=== PATIENT | male | born 1975 | race Caucasian/White ===

== ENCOUNTER 2020-02-20 10:54 | Emergency (ER) | payer BC, SELFPAY ==
[2020-02-20 10:56] VITALS: BP 135/89; PULSE 82; RESP 16; TEMP 36.6; O2SAT 99
--- NOTE | 2020-02-20 11:25 | ED.URI ---
HPI - URI/Sore Throat General Chief Complaint: Upper Respiratory Infection Stated Complaint: ear/nose/throat Time Seen by Provider: 02/20/20 11:10 Source: patient and RN notes reviewed Mode of arrival: ambulatory Limitations: no limitations History of Present Illness HPI Narrative: Patient presents today with a 3 to 4-day history of sore throat that increases with swallowing, and tenderness to his anterior neck. Denies fever, cough, congestion, rhinorrhea, ear pain. He currently rates his pain 7/10 and has been taking Tylenol and using Flonase with mild relief. MD elicited complaint: sore throat Related Data Home Medications Medication Instructions Recorded Confirmed fluticasone propionate [Flonase 1 spray INTRANASAL DAILY 02/20/20 02/20/20 Allergy Relief] Allergies Allergy/AdvReac Type Severity Reaction Status Date / Time No Known Allergies Allergy Verified 02/20/20 11:06 Review of Systems Review of Systems: Narrative: CONSTITUTIONAL: Denies body aches, fever, chills, or sweats. EYES: Denies visual changes, redness, or discharge. ENT: Denies rhinorrhea, congestion, or otalgia.+ Throat, neck tenderness CARDIOVASCULAR: Denies chest pain, palpitations, or edema. RESPIRATORY: Denies cough or dyspnea. GASTROINTESTINAL: Denies abdominal pain, nausea, vomiting, or diarrhea. GENITOURINARY: Denies dysuria or hematuria. SKIN: Denies rash, itching, or wounds. MUSCULOSKELETAL: Denies back pain, joint pain, or myalgia. NEUROLOGIC: Denies headache, numbness, tingling, or weakness. PSYCH: Denies depression or anxiety. PMFSH Comments At time of signature, I have reviewed and agree with nursing past medical, surgical, social and family history unless otherwise noted. Please see nursing chart for further information. There is no relevant family history pertinent to the presenting complaint Exam Narrative: Exam Narrative: GENERAL: Well-appearing, well-nourished, and in no acute distress. HEAD: Normocephalic, atraumatic. EYES: EOMI. No redness or drainage. Conjunctivae normal. ENT: Mucous membranes pink and moist. Nares clear. No rhinorrhea. TMs normal bilaterally. Throat mildly erythematous without edema or exudate. Uvula midline. NECK: Normal AROM. Supple. Left anterior cervical chain lymphadenopathy. CHEST: No respiratory distress. Clear to auscultation. HEART: Regular rate and rhythm. No murmur appreciated. Normal peripheral pulses. EXTREMITIES: Normal range of motion. No edema. SKIN: Warm, dry, no rash. Capillary refill normal. Normal skin turgor. NEURO: No focal deficits. Alert and oriented x3. Gait steady. PSYCH: Normal affect. No signs of depression or anxiety. Course Vital Signs Vital signs: Vital Signs Temperature 98 F 02/20/20 10:56 Pulse Rate 82 02/20/20 10:56 Respiratory Rate 16 02/20/20 10:56 Blood Pressure 135/89 02/20/20 10:56 Pulse Oximetry 99 02/20/20 10:56 Temperature 98 F 02/20/20 10:56 Pulse Rate 82 02/20/20 10:56 Respiratory Rate 16 02/20/20 10:56 Blood Pressure 135/89 02/20/20 10:56 Pulse Oximetry 99 02/20/20 10:56 Reviewed. Pt has been instructed to follow up with his PCP regarding his elevated blood pressure today. MDM - URI/Sore Throat Differential Diagnosis Differential diagnosis: Likely upper respiratory infection, viral infection, pharyngitis and other (Strep throat) Lab Data Attestation: I reviewed the patient's lab results. Labs: Strep Screen Presumptive Negative *(Reference Range: Negative)* Critical Care Time Critical Care Time Critical Care Time: No Discharge Plan Discharge Clinical Impression: Pharyngitis Qualifiers: Pharyngitis/tonsillitis etiology: unspecified etiology Qualified Code(s): J02.9 - Acute pharyngitis, unspecified Patient Disposition: Home, Self-Care Condition: Stable Instructions: Pharyngitis (ED) Additional Instructions: Your rapid strep swab was negative today at Ex
== END 2020-02-20 11:31 | disposition home or self-care (01) ==
PROVIDERS: Emergency Provider Nurse Practitioner; PCP Family Medicine
DX: J02.9 Acute pharyngitis, unspecified (principal)
CPT/HCPCS: 87081; 87880; 99213; G0463

== ENCOUNTER 2020-05-12 18:20 | Emergency (ER) | payer BC, SELFPAY ==
[2020-05-12 18:25] VITALS: BP 148/92; PULSE 85; RESP 18; TEMP 36.6; O2SAT 100
--- NOTE | 2020-05-12 19:02 | ED.GENADULT ---
HPI - General Adult General Chief complaint: Wound/Laceration <Von Sultana PA-C - Last Filed: 05/12/20 19:06> Stated complaint: head injury <MASON Hutchinson Last Filed: 05/12/20 19:06> Time Seen by Provider: 05/12/20 18:27 <MASON Hutchinson Last Filed: 05/12/20 19:06> Source: patient <Von Sultana PA-C - Last Filed: 05/12/20 19:06> Mode of arrival: ambulatory <Von Sultana PA-C - Last Filed: 05/12/20 19:06> Limitations: no limitations <Von Sultana PA-C - Last Filed: 05/12/20 19:06> History of Present Illness HPI narrative: Patient is a 44-year-old individual who presents with laceration to the right forehead after accidentally striking his head on his tailgate patient notes contusion with mild aching pain denies LOC syncope loss of consciousness or other complaints. Patient is unsure to his tetanus status but does not wish for tetanus shot at this time <Von Sultana PA-C - Last Filed: 05/12/20 19:06> Related Data Home medications: Home Medications Medication Instructions Recorded Confirmed fluticasone propionate [Flonase 1 spray INTRANASAL DAILY 02/20/20 02/20/20 Allergy Relief] <Von Sultana PA-C - Last Filed: 05/12/20 19:06> Allergies/adverse reactions: Allergies Allergy/AdvReac Type Severity Reaction Status Date / Time No Known Allergies Allergy Verified 02/20/20 11:06 <Von Sultana PA-C - Last Filed: 05/12/20 19:06> Review of Systems Review of Systems: All systems reviewed & are unremarkable except as noted in HPI and below <Von Sultana PA-C - Last Filed: 05/12/20 19:06> PMFSH Social History Social History: Social History Gender identity (if verbalized by the patient): Male <MASON Hutchinson Last Filed: 05/12/20 19:06> Exam Narrative: Exam Narrative: GENERAL: Well-appearing, well-nourished, and in no acute distress. HEAD: Normocephalic, linear laceration with contusion to the right forehead EYES: PERRLA and EOMI. ENT: Nares clear, no rhinorrhea or epistaxis. Mucous membranes moist. Oropharynx without tonsillar hypertrophy exudate or other lesions. NECK: Supple. No adenopathy or masses. EXTREMITIES: Normal range of motion. No edema. SKIN: Warm, dry, no rash. NEURO: No focal deficits. Alert and oriented x3. Cranial nerves II through XII grossly intact PSYCH: Normal mood and affect. <Von Sultana PA-C - Last Filed: 05/12/20 19:06> Course Course Emergency Course: Patient in the room in no distress aware of case findings treatment plan and diagnosis <MASON Hutchinson Last Filed: 05/12/20 19:06> Vital Signs Vital signs: Vital Signs Temperature 97.9 F 05/12/20 18:25 Pulse Rate 85 05/12/20 18:25 Respiratory Rate 18 05/12/20 18:25 Blood Pressure 148/92 H 05/12/20 18:25 Pulse Oximetry 100 05/12/20 18:25 Temperature 97.9 F 05/12/20 18:25 Pulse Rate 85 05/12/20 18:25 Respiratory Rate 18 05/12/20 18:25 Blood Pressure 148/92 H 05/12/20 18:25 Pulse Oximetry 100 05/12/20 18:25 <MASON Hutchinson Last Filed: 05/12/20 19:06> Vital Signs Temperature 97.9 F 05/12/20 18:25 Pulse Rate 85 05/12/20 18:25 Respiratory Rate 18 05/12/20 18:25 Blood Pressure 148/92 H 05/12/20 18:25 Pulse Oximetry 100 05/12/20 18:25 Temperature 97.9 F 05/12/20 18:25 Pulse Rate 85 05/12/20 18:25 Respiratory Rate 18 05/12/20 18:25 Blood Pressure 148/92 H 05/12/20 18:25 Pulse Oximetry 100 05/12/20 18:25 <Susannah Mazariegos MD - Last Filed: 05/12/20 19:14> Procedures Laceration Laceration 1: Date: 05/12/20 <Von Sultana PA-C - Last Filed: 05/12/20 19:06> Time: 19:04 <MASON Hutchinson Last Filed: 05/12/20 19:06> Site: face <MASON Hutchinson Last Filed: 05/12/20 19:06>
[2020-05-12 19:24] VITALS: BP 152/90; PULSE 77; RESP 16; TEMP 36.8; O2SAT 99
== END 2020-05-12 19:26 | disposition home or self-care (01) ==
PROVIDERS: Emergency Provider General Practice; PCP Family Medicine
DX: S01.81XA Laceration without foreign body of other part of head, initial encounter (principal); W22.8XXA Striking against or struck by other objects, initial encounter
CPT/HCPCS: 12011; 99283